=== PATIENT | female | born 1955 | race Caucasian/White ===

== ENCOUNTER 2020-03-31 07:58 | Day surgery (SDC) | payer BC, SELFPAY ==
--- NOTE | 2020-03-27 10:34 | EKG12_ITS ---
Test Reason : PREOP Blood Pressure : / mmHG Vent. Rate : 071 BPM Atrial Rate : 071 BPM P-R Int : 184 ms QRS Dur : 078 ms QT Int : 402 ms P-R-T Axes : 038 020 055 degrees QTc Int : 436 ms Normal sinus rhythm Normal ECG Confirmed by ROSA VALDERRAMA ([id number]), digital editor CECE LOPEZ ([id number]) on 03/31/2020 8:29:08 AM Referred By: Elias Glaser Confirmed By:ROSA VALDERRAMA
[2020-03-27 11:10] LABS: Hematocrit 41.9 % (37-47); Hemoglobin 13.9 g/dL (12.0-15.0); Mean Corp Hgb Conc 33.2 g/dL (32-36); Mean Corpuscular Hgb 30.7 pg (27.0-32.0); Mean Corpuscular Volume 92.5 fL (81-99); Mean Platelet Vol. 9.2 fl (6.2-12.0); Platelet Count 289 K/mm3 (150-450); RBC Distribution Width CV 15.2 % (11.6-14.6); RBC Distribution Width SD 51.7 fl (35.1-43.9); Red Blood Count 4.53 M/mm3 (4.2-5.4); White Blood Count 5.6 K/mm3 (4.4-11.0)
[2020-03-27 11:22] LABS: Partial Thromboplast Time 26.2 Seconds (24.1-36.2); Prothrombin Time (Protime)PT. 12.9 SECONDS (11.7-14.9)
[2020-03-27 12:48] LABS: Anion Gap 6 (5-15); BUN 28 mg/dL (7-18); BUN/Creat Ratio 43.3 RATIO (10-20); Calcium,Total 8.9 mg/dL (8.5-10.1); Chloride 107 mmol/L (98-107); Creatinine, Serum 0.65 mg/dL (0.55-1.02); EST Glomerular Filtration Rate 98 mL/min (>60); Est Glom Filt Rate - Afr Amer 119 mL/min (>60); Glucose 103 mg/dL (74-106); Potassium 3.8 mmol/L (3.5-5.1); Sodium Level 139 mmol/L (136-145)
--- NOTE | 2020-03-30 21:27 | PCM.HP.BLA ---
History and Physical Date of Admission: 03/31/20 Surgical History and Physical Alexandria Wall, a 64 year old female 1 0 0 0 0, presents for Vaginal Hysterectomy and AP Repair on March 31, 2020 at 10:00. -- Prolapse of uterus and vagina -- Alexandria presents here today as referral from [facility] Nabil BOWLING for prolapsed vagina and uterus. 64 y.o. G 1 P 0 post-menopausal non-smoker and reports that she first noticed something going on in 2017, but was told it was nothing to worry about, and in November this year, she noticed that she was having a lot of pressure that seemed to worsen periodically, to the point of currently causing discomfort and often urine interruption. Denies other concerns. Patient is postmenopausal and denies any bleeding or spotting at today's visit. Vaginal and Uterine Prolapse which began 2017 slightly. Alexandria claims it started gradually and has been present 11/2019 worsened. It occurs intermittantly. It is located in the vagina. Alexandria characterizes it to be non-radiating. Alexandria characterizes the quality pressure/uncomfortable cramps. Severity is moderate and not improving. MEDICATIONS HISTORY: Patient is also takin. hydrochlorothiazide 25 mg tablet, One pill by mouth once a day 2. Lomaira 8 mg tablet, One pill by mouth three times a day 3. losartan 100 mg tablet, One pill by mouth once a day 4. potassium chloride ER 10 mEq capsule,extended release, Two pills by mouth twice a day 5. alprazolam 0.5 mg tablet, As Directed 6. ropinirole 1 mg tablet, As Directed 7. zolpidem 10 mg tablet, As Directed ALLERGIES: Clindamycin, Intolerance-diarrhea, Lisinopril and Intolerance-cough Infections - Chicken pox and Measles Illnesses - HTN,Hypokalemia, Anxiety, Insomnia,IBS,Restless Legs Accidents - None Hospitalizations - see surgery Review of Systems: GENERAL - Denies fever, or chills SKIN - Denies skin changes EYES - wears eye glasses EARS - Denies difficulty hearing NOSE - Denies nasal congestion or bleeding MOUTH - Denies sore throat or difficulty swallowing NECK - Denies pain or swelling RESPIRATORY - Denies shortness of breath or wheezing CARDIOVASCULAR - Denies palpitations or chest pain GASTROINTESTINAL - Denies nausea, vomiting, diarrhea, constipation GENITOURINARY - vaginal itching mild burning MUSCULOSKELETAL - Denies joint or muscle pain NEUROLOGICAL - Denies localized numbness or weakness PSYCHIATRIC - Denies depression or anxiety ENDOCRINE - Denies heat or cold intolerance, weight loss or gain HEMATO-IMMUNOLOGIC - Denies excesive bleeding with cuts SOCIAL HISTORY: Alcohol Use - None Smoking - Never Diet - no special diet Lifestyle - moderate stress lifestyle and Exercise - active work Seat Belt Use - always Employer - [employer] Job Description - assoicate Illicit Drug Use - None Sexual Activity - Spouse-Sig Other Name - Venancio Spouse-Sig Other Occupation - Retired Control - postmenopausal FAMILY HISTORY: MENSTRUAL HISTORY: LMP Known?- Postmenopausal PAST PREGNANCIES: Total Pregnancies - 1; Full Term Pregnancies - 1; Premature - 0; Abortions, Induced - 0; Abortions, Spontaneous - 0; Ectopics - 0; Multiple Births - 0; Living Children - 0 SURGICAL HISTORY: 1. T and A ; - 2. Bilateral Carpel Tunnel 2011 ; - 3. (L) Knee Replacement 2013 ; - 4. Deviated Spetum Repair 2013 ; - 5. (R) Knee Replacement 2017 ; - PHYSICAL EXAM BP- 134/80 Sitting, Left arm, large cuff Temp- 98.0 Taken Orally Weight- 220.81431 lbs Height- 63 inch BMI:39.05 CONSTITUTIONAL - NAD, well nourished, and well developed SKIN - No rash, lesions, or ulcers HEENT - Normocephalic, PERRLA, EOMI NECK - No nodes, no nuchal rigidity and thyroid normal size and texture LYMPH NODES - Palpation of lymph nodes in neck and groins within normal limits LUNGS - CTA x2 without wheezes, crackles or rales CARDIAC - Regular rate and rhythm without rubs, murmurs, or gallops ABDOMEN - Without hepatosplenomegaly, distention, masses, rebound, or guarding; normal bowel sounds; no hernias EXTREMITIES - No edema or calf tenderness NEUROLOGICAL - Cranial nerves II-XII grossly intact PSYCHIATRIC - A and O to time, place, person, mood and affect External Genitial Vagina - non-tender without lesions Urethra/Urethral Meatus - non-tender Bladder - non-tender Vagina - loss of rugae and large cystocele 2 cm outside of introitus and rectocele 1 cm outside introitus Cervix - without cervical motion tenderness and has normal size and features without evident lesions and cervix to the introitus with bearing down Uterus - 5-6 cm in size, mobile and nontender Adnexa - clear without massess or tenderness ASSESSMENT/PLAN: 1. Uterovag Prolapse Incomplete Very symptomatic. Discussed options for treatment and plan to proceed wth Vag Hyst and AP Repair. Discussed RBAs including increasing REGINA or recurrence of prolapse over time and all questions answered. Rx sent for estrogen vaginal cream to use before and after surgery for atrophy.
[2020-03-31] VITALS (12 sets, daily range): BP systolic 106–146; BP diastolic 46–79; PULSE 49–90; RESP 16–18; TEMP 36.3–36.8; O2SAT 92–100; BMI 38.9
[2020-03-31] MEDS: Lactated Ringers 1,000 ML 100 ML IV (08:45)
--- NOTE | 2020-03-31 10:08 | OP.PCM_ITS ---
Report of Operation Date of Procedure: 03/31/20 Pre-Operative Diagnosis: Incomplete Uterovaginal Prolapse, Cystocele, Rectocele Post-Operative Diagnosis: Incomplete Uterovaginal Prolapse, Cystocele, Rectocele Surgery/Procedure Performed:: Vaginal Hysterectomy and Anterior Posterior Repair Description of Surgical Findings:: 6 cm uterus with cervix that protrudes to the introitus. Cystocele which protrudes 2 cm outside the introitus and rectocele which protrudes to the introitus. automotive specialty technician: Jeremy Chew Type of Anesthesia:: General - Endotracheal Anesthesiologist: Chris Rivera Specimen's removed: Uterus and vaginal mucosa Drains: Pickard to straight drain Estimated Blood Loss (mL): 100 cc Fluids Replaced: Crystalloid Description of Procedure: Surgeon: Elias Glaser MD, FACOG Indications: This is a 64-year-old patient who is been having problems with symptomatic uterovaginal prolapse. Conservative measures have not been helpful. Given this the patient desires that we proceed the above procedure. She has been counseled regarding the risk and indications of this procedure including the possibility of bleeding, infection, and injury to surrounding structures such as bowel bladder. All questions were answered. Procedure: Patient was taken to the operating room where after induction of general anesthesia she was placed in the dorsal lithotomy position and prepped and draped in the usual sterile fashion. A Pickard catheter was placed. Anterior cervix was grasped with a tenaculum and anterior cervix circumscribed with cautery on a setting of 35 W coagulation. Anterior vaginal mucosa was undermined and anterior peritoneum was easily entered. The posterior aspect of the cervix was circumscribed with a knife and posterior peritoneum easily entered. Progressive bites were taken on either side of the uterine cervix and each pedicle ligated with 0 Vicryl suture. Superior pedicles were ligated ?2 with 0 Vicryl suture and sidewall pedicles were examined and oversewn where necessary with [id number] 0 Vicryl suture to achieve hemostasis. Posterior vaginal cuff was oversewn with running locked 0 Vicryl suture. Hemostasis was noted and peritoneum was closed in a pursestring fashion incorporating superior pedicles into the stitch. Hemostasis was noted. Attention was turned toward the anterior repair portion of the procedure. Anterior vaginal mucosa was undermined and divided and then imbricated toward the midline with interrupted 0 Vicryl sutures. Vaginal mucosa was trimmed and then closed with interrupted 2-0 chromic suture. Vaginal cuff was then closed front to back with interrupted [id number] 0 Vicryl suture. Hemostasis was noted. Attention was turned toward the posterior repair portion of the procedure. Remnants of the hymenal ring were grasped with Allises and a V-shaped incision was made in the perineum. Rectovaginal mucosa was then undermined divided and then imbricated toward the midline with interrupted 0 Vicryl suture. Vaginal mucosa was trimmed and then closed with running locked 2-0 chromic suture. Remnants of the bulbocavernosus muscles were identified and brought toward the midline with a single [id number] 0 Vicryl suture and perineum was closed in the usual fashion with running and subcuticular, and [id number] 2-0 chromic suture. Hemostasis was noted. Pickard catheter was again opened and clear yellow urine was noted. Vagina was packed with about half of a 1 inch iodoform tape pack. Patient tolerated the procedure well was taken to recovery room in satisfactory condition; sponge instrument and needle counts were all reportedly correct. Estimated blood loss for the case was 100 cc. Cefotan 2 g IV was given prior to beginning the operative procedure. There were no apparent complications of the surgery. Specimen to pathology was uterus and vaginal mucosa. Grafts/Implants Used: None - Complications None - Admit VTE Documentation VTE Present on Admission: Yes VTE Mechan Device Prophylaxis: SCD's VTE Pharm Prophylaxis ordered?: Yes
--- NOTE | 2020-03-31 10:10 | DCINST_ITS ---
Discharge Diet: No Restrictions Discharge Activity: Return to Normal Activity, May Not Drive - while taking narcotic pain medications., May Shower, May Take a Tub Bath May resume sexual activity in: 6-8 weeks Call your doctor if your incision/area has: Continuous Slow Oozing, Sudden Inc reased Bleeding, Increased Pain/ Swelling, Increased Redness, Foul Smelling Discharge Call your doctor if you observe: Fever of 101 or Higher, Inability to urinate, Inability to have a bowel movement, Using more than one pad per hour Allergies/Adverse Reactions: Allergies clindamycin Allergy (Verified 03/31/20 08:26) Rash lisinopril Allergy (Verified 03/31/20 08:26) Laryngospasms COUGHING Medications to take at Discharge ALPRAZolam [Xanax] 0.5 mg PO QHS PRN PRN 03/24/20 Ascorbic Acid [Vitamin C] 1,500 mg PO DAILY 03/24/20 Cholecalciferol (Vitamin D3) [Vitamin D3] 5,000 unit PO DAILY 03/24/20 Hydrochlorothiazide [Hctz] 25 mg PO DAILY 03/24/20 Iodine [Kelp] 150 mcg PO DAILY 03/24/20 Losartan Potassium [Cozaar] 100 mg PO DAILY 03/24/20 Melatonin 5 mg PO DAILY 03/24/20 Multivitamin [Daily Multiple Vitamin] 1 ea PO DAILY 03/24/20 Phentermine HCl [Lomaira] 24 mg PO DAILY 03/24/20 Potassium Chloride 20 meq PO BID 03/24/20 Psyllium Husk [Fiber] 0.52 gm PO DAILY 03/24/20 Ropinirole HCl [Requip] 1 mg PO PRN PRN 03/24/20 Zolpidem Tartrate [Ambien] 5 mg PO PRN PRN 03/24/20 Primary Care Physician: Vince Ferrer MD [Primary Care Provider] - Test Results: Test results from this visit will be discussed in further detail at your follow- up appointment, if applicable. Please Follow Up With: Elias Glaser MD When: 2 to 3 weeks
--- NOTE | 2020-03-31 10:10 | HYST_PTH ---
PATIENT: SUJEY IRVIN LOC: [facility] [place] U#:[id number] AGE/SX: 64/F ROOM: RE03/31/[address]: Dr. Elias Glaser MD : [id number] BED: DIS: 04/01/2020 SPEC #: [id number] RECD: 03/31/20 12:57 STATUS: DOMINIQUE CUCA #: [id number] CARMEN: 03/31/20 10:[address]: Elias Glaser DEPT: SURGICAL PATHOLOGY RECD BY: Georgina Townsend ENTERED: 04/01/20 07:59 SP TYPE: HYSTERECT OTHR DR: Dr. Vince Ferrer MD Tissues: Uterus, NOS Procedures: Surgery Specimen Level II Surgery Specimen Level V HEADER OPERATION: Vaginal hysterectomy, A & P repair PRE-OP DIAGNOSIS: Iron deficiency anemia secondary to blood loss; premenopause menorrhagia; submucous leiomyoma and simple endometrial hyperplasia TISSUE SUBMITTED: Uterus and cervix, vaginal mucosa, anterior and posterior tissue MICROSCOPIC DIAGNOSIS Uterus, hysterectomy: Cervix - squamous metaplasia, nabothian cysts and chronic inflammation. Endometrium - inactive endometrium with focal cystic change. Myometrium - leiomyomas. Vaginal mucosa, anterior and posterior repair: Mild chronic inflammation. No evidence of dysplasia. AM:branden 04/02/20 MICROSCOPIC DESCRIPTION Slides are reviewed. GROSS DESCRIPTION Received in fixative is one container labeled with the patient's name and designated uterus, cervix and anterior and posterior tissue. The specimen consists of a hysterectomy specimen consisting of uterus with cervix and detached mucosal tissue. The uterus with cervix weighs 45 gm and measures 8 x 4 x 3.5 cm. The serosal surface is arroyo, glistening. The ectocervical mucosa is unremarkable. The external os is slit-like in contour and covered with mucoid material. The endocervical canal measures up to 3.5 cm in length and the endocervical mucosa is arroyo, glistening and unremarkable. The triangular endometrial cavity measures 3 cm in length and 2.5 cm in width. The endometrium is arroyo, glistening without any mass lesion and measures 0.1 cm in thickness. Sections of the uterine wall reveal two nodular masses, one intramural and one submucosal, each measuring 1.5 cm in greatest dimension. Sections of these masses reveal arroyo whorled cut surfaces without areas of hemorrhage, necrosis or cystic degeneration. The uninvolved uterine wall measures up to 1.5 cm in thickness. Also present in the container are multiple detached pieces of mucosal tissue measuring in aggregate 7 x 4.5 x 0.5 cm. No mucosal lesion is identified. Numerous instrumentation arredondo are noted. Traveling Phlebotomist sections are submitted in seven cassettes as follows: 1 - anterior cervix, 2 - posterior cervix, 3 & 4 - anterior uterine wall, 5 & 6 - posterior uterine wall (cassette 5 also contains the nodular masses). Entire endometrium is submitted. 7 - mucosal tissue. / SJ:branden 04/01/20 TC:1 CPT: 92055, 10775
[2020-03-31] MEDS: Ketorolac 30 MG/ML Syringe IV ×2 (12:20→18:07)
[2020-03-31] MEDS: Ondansetron 4 MG/2 ML Vial IV (14:55)
[2020-03-31] MEDS: HYDROmorphone 1 MG/ML Syringe 0.5 MG IV (14:55)
[2020-03-31] MEDS: Dextrose 5%-Lactated Ringers 1,000 ML 150 ML IV (15:05)
[2020-03-31] MEDS: Enoxaparin 30 MG/0.3 ML Syringe SC (18:08)
[2020-03-31] MEDS: oxyCODONE 5 MG Tablet PO (21:57)
[2020-04-01] MEDS: Ketorolac 30 MG/ML Syringe IV ×2 (01:19→06:14)
[2020-04-01] MEDS: 0.9% Saline Lock 10 ML Syringe IV ×2 (01:19→06:14)
[2020-04-01 05:10] VITALS: BP 122/48; PULSE 69; RESP 16; TEMP 36.6; O2SAT 95
--- NOTE | 2020-04-01 05:25 | PCM.PN.OB ---
Subjective: Patient tolerating diet well. Minimal vaginal bleeding. Positive flatus. Wants to go home later today. Objective: Vaginal pack is out with minimal vaginal bleeding noted. Good urine output. Hemoglobin and creatinine pending this morning. - Physical Exam Vitals/I&O's: Vital Signs Temp Pulse Resp BP Pulse Ox 98.3 F 83 16 130/64 H 98 03/31/20 22:30 03/31/20 22:30 03/31/20 22:30 03/31/20 22:30 03/31/20 22:30 Oxygen Flow Rate (L/min) 2 Oxygen Delivery Method Room Air Weight: 219 lb 12.814 oz Body Mass Index (BMI) 38.9 Intake and Output for Last 24 Hours 03/30/20 03/31/20 04/01/20 23:59 23:59 23:59 Intake Total 1750 / 2250 900 / 900 Output Total 290 / 990 700 / 700 Balance 1460 / 1260 200 / 200 Current Medications Acetaminophen (Tylenol) 1,000 mg PO Q8H PRN PRN PRN Reason: Pain Score 1-3/10 or Fever Alprazolam (Xanax) 0.5 mg PO QHS PRN PRN PRN Reason: ANXIETY Docusate Sodium (Colace) 100 mg PO BID PRN PRN PRN Reason: Constipation Hydrochlorothiazide (Hctz) 25 mg PO DAILY [facility] Hydromorphone HCl (Dilaudid Inj) 0.5 mg IV Q3H PRN PRN PRN Reason: Pain Score 4-10/10 Last Admin: 03/31/20 14:55 Dose: 0.5 mg Documented by: Ketorolac Tromethamine (Toradol (Bkc)) 30 mg IV Q6H [facility] Stop: 04/05/20 12:53 Last Admin: 04/01/20 01:19 Dose: 30 mg Documented by: Losartan Potassium (Cozaar) 100 mg PO DAILY [facility] Ondansetron HCl (Zofran) 4 mg IV Q4H PRN PRN PRN Reason: NAUSEA Last Admin: 03/31/20 14:55 Dose: 4 mg Documented by: Oxycodone HCl (Oxyir) 5 mg PO Q4H PRN PRN PRN Reason: Pain Score 4-10/10 Last Admin: 03/31/20 21:57 Dose: 5 mg Documented by: [facility] Last Admin: 03/31/20 16:59 Dose: 20 meq Documented by: Pramipexole Dihydrochloride (Mirapex) 0.5 mg PO QHS PRN PRN PRN Reason: RESTLESS LEGS Simethicone (Mylicon) 80 mg PO PCHS [facility] Last Admin: 03/31/20 21:53 Dose: 80 mg Documented by: Sodium Chloride () 10 - 40 ml IV UD PRN PRN Reason: SALINE FLUSH Last Admin: 04/01/20 01:19 Dose: 10 ml Documented by: Zolpidem Tartrate (Ambien (Generic)) 5 mg PO QHS PRN PRN Reason: Sleep Medical Necessity - Tobacco Use Smoking Status: Never smoker Tobacco Use: Non-smoker Assessment/Plan Doing well postoperative day #1 status post vaginal hysterectomy and anterior posterior repair. Will release to home later today with routine instructions when able to void on own.
[2020-04-01 06:39] LABS: Hematocrit 36.8 % (37-47); Hemoglobin 12.2 g/dL (12.0-15.0); Mean Corp Hgb Conc 33.2 g/dL (32-36); Mean Corpuscular Hgb 30.3 pg (27.0-32.0); Mean Corpuscular Volume 91.5 fL (81-99); Mean Platelet Vol. 9.2 fl (6.2-12.0); Platelet Count 267 K/mm3 (150-450); RBC Distribution Width CV 15.2 % (11.6-14.6); RBC Distribution Width SD 50.7 fl (35.1-43.9); Red Blood Count 4.02 M/mm3 (4.2-5.4)
[2020-04-01 06:56] LABS: EST Glomerular Filtration Rate 107 mL/min (>60); Est Glom Filt Rate - Afr Amer 130 mL/min (>60); Estimated Creatinine Clearance 79.39 ml/min
[2020-04-01] MEDS: Losartan Potassium 100 MG Tablet PO (09:34)
[2020-04-01] MEDS: hydroCHLOROthiazide 25 MG Tablet PO (09:34)
[2020-04-01 10:07] VITALS: BP 135/79; PULSE 78; RESP 16; TEMP 36.6; O2SAT 98
== END 2020-04-01 10:20 | disposition home or self-care (01) ==
LOC: SDC 07:59 → AC 08:00 → MS3 09:13
PROVIDERS: Anesthesiology; Referring Provider Obstetrics & Gynecology; Visit Provider Obstetrics & Gynecology
PROC: (CPT 58260; principal; 2020-03-31 09:50)
DX: N81.2 Incomplete uterovaginal prolapse (principal); N88.8 Other specified noninflammatory disorders of cervix uteri; D25.9 Leiomyoma of uterus, unspecified; I10 Essential (primary) hypertension; F41.9 Anxiety disorder, unspecified; G25.81 Restless legs syndrome; E87.6 Hypokalemia; Z11.59 Encounter for screening for other viral diseases; Z78.0 Asymptomatic menopausal state; Z79.899 Other long term (current) drug therapy
CPT/HCPCS: 00944; 57260; 58260; 36415; 80048; 82565; 85027; 85610; 85730; 86850; 86900; 86901; 87635; 88302; 88307; 93005; 99251; G2023; J7120; A4216; G0463; J2405; U0003